=== PATIENT | male | born 1930 | race Caucasian/White ===

== ENCOUNTER 2016-12-16 13:21 | Emergency (ER) | payer MEDICARE, OTHER ==
[~2016-12-16] VITALS: Ht 177.8 cm; Wt 69.9 kg
[2016-12-16] MEDS ORDERED: TAMSULOSIN HCL0.4 MG PO (13:46)
[2016-12-16] MEDS ORDERED: CENTRUM SILVER1 EAC4 PO (13:47)
[2016-12-16] MEDS ORDERED: WARFARIN SODIUM4 MG PO (13:47)
[2016-12-16] MEDS ORDERED: MEGESTROL ACETA40 MG PO (13:48)
[2016-12-16] MEDS ORDERED: ALBUTEROL2.5 MG/NEB INH (13:49)
--- NOTE | 2016-12-16 13:53 | Emergency Room Report ---
History of Present Illness Time Seen by [id number] Presenting Problem in Triage Pt arrived:Wheelchair Presenting Problem: STATES PT HAS HAD SHORTNESS OF AIR, NOT EATING OR DRINKING WELL THAT BEGAN OVER THE WEEKEND. 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 N Clinical Suspician of Infection? N Mental Status: 1 - Regular (Normal Baseline) Sepsis Risk:Low Sepsis Risk Have you (or family members/close friends) recently traveled outside the [place]? N If Yes, where/when: Have you had exposure to infectious disease within the past month? N TB? Other? Specify: Source patient, family Exam Limitations no limitations Comment 86 yr old male presents for c/o of weakness,and decrease rosemary that started this weekend. Cardiac Chest Pain Chest pain indicative of cardiac No ALLERGIES Coded Allergies: cefuroxime (From CEFTIN) (12/16/16) levofloxacin (From LEVAQUIN) (12/16/16) Home Medications Reported Medications TAMSULOSIN HCL (Tamsulosin HCl) 0.4 MG PO BID #180 Multivit-Min/FA/Lycopen/Lutein (Centrum Silver Men Tablet) 1 EACH PO DAILY Warfarin Sodium (Warfarin 4MG) 2 MG PO DAILY Megestrol Acetate (Megestrol Acetate 40MG) 40 MG PO DAILY ALBUTEROL (Albuterol 0.083% Neb) 2.5 MG INH DAILY (Eduardo Álvarez) History Medical History General CAD? No Angina: No RI: No Hypertension? No Hyperlipidemia? No CHF? No DVT? No PE? No COPD? No Asthma? No Anemia? No GERD? No Gastric ulcers? No GI Bleed? No Hernia? No Thyroid Problems? No Hypothyroidism? 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 Yes Diabetes? No Renal Insuffiency? No End Stage Renal Disease? No UTI? No Stones? 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 No Asplenia? No Hepatitis? No Sickle Cell Disease? No Arthritis? No Migraines? No Cataracts? No Glaucoma? No MRSA? No HIV? No TB? No Anxiety? No Depression? No Cancer? No Immunization Hx DT/Tetanus Unknown Surgical Hx Previous Surgery?Y ANEURYSM 1992 L HIP 2001 Social History Smoking Hx Smoker: Current Every Day Smoker Tobacco: Yes Type Cigarettes Packs/day < 1 Pack Alcohol Alcohol: No (Eduardo Álvarez) Review of Systems All Other Systems Reviewed and Negative Respiratory see HPI, cough, shortness of breath Cardiovascular denies no symptoms reported (Eduardo Álvarez) Physical Exam - WBC >12,000 or <4,000 or 10% bands? 2 or more SIRS Criteria Met? B/P:144/70 MAP:94 Creatinine >2.0? UA output<0.5ml/kg/hr for 2 hrs? Platelet count >100,000? Lactate >2.0mmol/1? INR >1.2 or PTT > than 60 sec? Evidence of Organ Dysfunction? Provider documented clinical suspician of infection? N Sepsis Criteria Count: 1 Sepsis Risk: Low Sepsis Risk General Appearance normal appearance, mild distress, thin Eye Exam - bilateral eye normal exam, bilateral eye PERRL, bilateral eye EOMI Ear, Nose, Throat hearing grossly normal, normal ENT inspection Neck normal inspection, full range of motion Respiratory Status Yes: trachea midline, chest symmetrical, non tender chest. No: respiratory distress. Lung Sounds posterior: rhonchi, crackles. left: rhonchi, crackles. right: rhonchi, crackles. Cardiovascular normal exam, regular rate/rhythm Peripheral Pulses Pulses normal Yes Neurologic alert, normal exam, oriented x 3 (Eduardo Álvarez) Vital Signs Vital Signs Date Time Temp Pulse Resp B/P Pulse O2 O2 Flow FiO2 Ox Delivery Rate 12/16 1614 97.7 74 20 174/83 93 / 1437 98.0 64 20 160/77 94 06/ 1336 98.4 73 20 144/70 93 Stroke Score/Tx Stroke Evaluation Initial symptoms indicative of possible stroke? No (Eduardo Álvarez) Suicide Risk Assessment Suicide Assessment indicated? No (Eduardo Álvarez) Medical Decision Making LABS/Meds/Orders Pt receiving controlled substance in ED? No (Eduardo Álvarez) LABS/Meds/Orders Comment Upon reevaluation patient appears medically stable, in no acute distress. His vital signs appear within the last. 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 He has been on a thickened diet since. Advised the , as well as patient of the results obtained, need to initiate antibiotic therapy, also increase his Coumadin short-term to 3mg/day and cover him with Lovenox shots. Patient to follow-up with PCP in [place], within the next 2 days. Results/Orders Laboratory Tests 12/16/161424: Lactic Acid 0.7 12/16/161424: Creatine Kinase 57, CK-MB (CK-2) Rel Index 0.9, CK and CKMB Interp < 0.5, Troponin I < 0.02 12/16/161424: B-Natriuretic Peptide 73 12/16/161424: Sodium 143, Potassium 3.8, Chloride 106, Carbon Dioxide 26, BUN 21 H, Creatinine 1.2, Estimated Creat Clear 45 L, Estimated GFR (MDRD) 58, Glucose 77 , Calcium 9.0, Total Bilirubin 0.4, AST 13 L, ALT 20, Alkaline Phosphatase 42 L, Total Protein 7.8, Albumin 3.6, Globulin 4.2 H, Albumin/Globulin Ratio 0.9 L, PT 12.6 H, INR 1.18 H, APTT 27.7, WBC 6.0, RBC 3.83 L, Hgb 11.9 L, Hct 35.9 L, MCV 93.8, RDW 16.3, Plt Count 237, Gran % 64.3, Gran # 4.2, Lymphocytes % 30.8, Monocytes % 4.9, Lymphocytes # 2.0, Monocytes # 0.3, PUBS MCHC 33.1, MCH 31.1 Current Medication Orders Sig/Raulito Start time Last Medication Dose Route Stop Time Status Admin Enoxaparin Sodium 0 .STK-MED ONE 12/16 1523 DC SC Azithromycin 0 .STK-MED ONE 12/16 1522 DC PO Azithromycin 500 MG ONCE ONE 12/16 1514 DC 12/16 PO 12/17 1515 1528 Enoxaparin Sodium 70 MG ONCE ONE 12/16 1515 DC 12/16 SC 12/16 151 1528 Sodium Chloride 1,000 ML .STK-MED ONE 12/16 1501 DC IV Sodium Chloride 1,000 ML .Q1H1M 12/16 1500 DC 12/16 IV 12/16 1600 1505 Sodium Chloride 10 ML PRN PRN 12/16 1500 DCD IV 12/17 1459 Sodium Chloride 10 ML PRN PRN 12/16 1415 DCD IV 12/17 1405 Orders Procedure Date/time Status STOOL OCCULT BLOOD 12/16 1444 Active PARTIAL THROMBOPLASTIN TIME 12/16 1431 Complete PROTHROMBIN TIME 12/16 1431 Complete BRAIN NATRIURETIC PEPTIDE 12/16 1431 Complete IV SALINE LOCK 12/16 1405 Active ELECTROCARDIOGRAM REQUEST 12/16 1343 Active CARDIAC ENZYMES 12/16 1343 Complete 12 LEAD EKG-DYAN (INITIAL) 12/16 1340 Active CULTURE, SPUTUM 12/16 1330 Active CULTURE, BLOOD 12/16 1330 Active LACTIC ACID 12/16 1330 Complete CBC WITH AUTO DIFF 12/16 1329 Complete CHEM 12 PROFILE 12/16 1329 Complete CM/EKG CM/school program director Rhythm Normal Sinus Rhythm Rate 85 Ectopy No Comments no acute ischemic changes EKG rate, NSR, rhythm, no evid. of ischemic chgs, no ectopy, normal QRS, no EKG for comparison, non-spec. ST/Twave chgs, ST elevation, ST depression, LBBB, RBBB, ectopy, abnormal Q waves XRAY/CT/US XRAY/CT/US XRAY chest XR interpretation by discussed w/radiologist Xray Results no infiltrates, cardiomegaly, LEFT pleural effusion, per Dr. Roblero (Melvi MOYER,Олег Santos) Departure Departure ED Critical Care Critical Care No (Eduardo Álvarez) Departure Time of Disposition 1510 Disposition DC Home or Self Care(routine) Clinical Impression Primary Impression: Acute bronchitis Qualifiers: Bronchitis organism: unspecified organism Qualified Code: J20.9 - Acute bronchitis, unspecified Secondary Impressions: Dehydration, Loss of appetite, Pleural effusion, left, Subtherapeutic anticoagulation Condition STABLE Patient Instructions DI for Acute Bronchitis, DI for Dehydration -- Adult Additional Instructions You're INR was 1.18 today (too low). Please find attached a prescription for Lovenox, to be used twice a day, according to the directions. In the meanwhile, please take 4 mg of Coumadin tonight, and increase your family Coumadin from 2mg /day to 3mg/day. Please call your family physician and schedule follow-up appointment within 2 days. If unable to see her doctor, please return promptly to this, same, emergency room, for reevaluation. Discharge Counseling Counseled pt/family regarding diagnosis, test results, medications/RX, home care, follow up needs Comment You're INR was 1.18 today (too low). Please find attached a prescription for Lovenox, to be used twice a day, according to the directions. In the meanwhile, please take 4 mg of Coumadin tonight, and increase your family Coumadin from 2mg /day to 3mg/day. Please call your family physician and schedule follow-up appointment within 2 days. If unable to see her doctor, please return promptly to this, same, emergency room, for reevaluation. Prescriptions Current Visit Scripts Azithromycin (Zithromax 250 Mg) 250 MG PO DAILY #4 TAB ENOXAPARIN SODIUM (Lovenox) 80 MG SC BID #14 INJ ED Critical Care Critical Care No (Meliv MOYER,Олег Santos) at [id number]
--- OUTSIDE RECORDS SUMMARY | 2016-12-16 13:55 | External Medical Summary Rpt ---
Author Author [employer] Address Unknown Phone Unavailable Purpose Continuity of Care Document - through 2016
--- OUTSIDE RECORDS SUMMARY | 2016-12-16 13:55 | External Medical Summary Rpt ---
Author Author , Organization [employer] Address Unknown Phone Unavailable Purpose Continuity of Care Document - 12-02-2016 through 2016
--- OUTSIDE RECORDS SUMMARY | 2016-12-16 13:55 | External Medical Summary Rpt ---
Author Author [employer], [employer] Organization [employer] Address Unknown Phone Unavailable Results INR in Blood by Coagulation assay Observa Value Referen Units Interpr Notes Date tion ce etation Range INR in 0.9 - 1.1 No High INDICATIO December 02 Blood by informati N 2017 Coagulati on in 10:40 AM on assay source INR data RANGETHER APY FOR DVT, PE, ATRIAL FIB; 2.0 - 3.0PROPHY LAXIS FOR VTETHERAP Y FOR MECHANICA L HEART 2.5 - 3.5VALVE; PREVENTIO N OF SYSTEMICE MBOLISM SECONDARY TO AMI Prothromb 9.4 - SECONDS High No December 02 in time 11.8 informati 2017 (PT) in on in 10:40 AM Platelet source poor data plasma by Coagulati on assay
--- OUTSIDE RECORDS SUMMARY | 2016-12-16 13:55 | External Medical Summary Rpt ---
Demographics Preferred Language Maori Marital Status Unknown Confucianism Affiliation Unknown Race Unknown Ethnic Group Unknown Author Author , Organization [employer] Address Unknown Phone Unavailable Purpose Continuity of Care Document - through 2016 Immunization No patient found.
--- OUTSIDE RECORDS SUMMARY | 2016-12-16 13:55 | External Medical Summary Rpt ---
Demographics Preferred Language Welsh Marital Status Unknown Catholic Affiliation Unknown Race Unknown Ethnic Group Unknown Author Author , Organization [employer] Address Unknown Phone Unavailable Purpose Continuity of Care Document - through 2016 Immunization No patient found.
[2016-12-16 14:31] LABS: HEMOGLOBIN 11.9 g/dL (14.1-18.0); LYMPH % 30.8 % (10-50)
--- NOTE | 2016-12-16 14:55 | RADIOLOGY REPORT PS360 ---
CHEST-PORTABLE HISTORY: Cough and dyspnea dyspnea ORDERING PHYSICIAN: Олег Ogden MD PATIENT AGE: 86 years COMPARISON: None available FINDINGS: The cardiomediastinal silhouette and pulmonary vascularity are within normal limits. There is blunting of the left CP angle suggesting a small left pleural effusion or pleural reaction.. Reason old no lobar consolidation or collapse. Minimal atelectatic or fibrotic change right upper lobe left humeral neck fracture.. IMPRESSION: 1. Small left-sided pleural effusion versus pleural reaction 2. Minimal atelectatic or fibrotic change right upper lobe
[2016-12-16] MEDS ORDERED: ZITHROMAX 250M250 MG PO (15:16)
[2016-12-16] MEDS ORDERED: LOVENOX 8080 MG/0.8 SC (15:17)
[2016-12-16 16:14] VITALS: BP 174/83
== END 2016-12-16 16:15 | disposition home or self-care (01) ==
LOC: ER 13:21
PROVIDERS: Emergency Medicine
DX: J20.9 Acute bronchitis, unspecified (principal); E86.0 Dehydration; J90 Pleural effusion, not elsewhere classified; Z72.0 Tobacco use; R06.02 Shortness of breath; Z79.01 Long term (current) use of anticoagulants

== ENCOUNTER → 2017-01-06 | Outpatient (CLI) | payer MEDICARE, OTHER ==
[~2017-01-06] MED LIST: ALBUTEROL2.5 MG/NEB INH; CENTRUM SILVER1 EAC4 PO; LOVENOX 8080 MG/0.8 SC; MEGESTROL ACETA40 MG PO; TAMSULOSIN HCL0.4 MG PO; WARFARIN SODIUM4 MG PO; ZITHROMAX 250M250 MG PO
== END ==
LOC: LAB 12:22
DX: Z79.01 Long term (current) use of anticoagulants (principal); R39.81 Functional urinary incontinence; I69.354 Hemiplegia and hemiparesis following cerebral infarction affecting left non-dominant side; M62.81 Muscle weakness (generalized); J84.89 Other specified interstitial pulmonary diseases